=== PATIENT | male | born 1950 ===

== ENCOUNTER 2019-01-19 09:11 | Day surgery (SDC) | payer MEDICARE, OTHER ==
[~2019-01-19] VITALS: Ht 170.2 cm; Wt 75.0 kg
[2019-01-19] VITALS (11 sets, daily range): BP systolic 125–162; BP diastolic 78–93
[~2019-01-19 09:11] MED LIST: Vancomycin 1 GM in D5W 275 ML IVPB ONE; ceFAZolin sod 1 GM in NS 55 ML IVPB ONE
--- NOTE | 2019-01-19 09:57 | Pre-Procedure Note/Attestation ---
Pre-Procedure Note/Attestation Complete Prior to Procedure Planned Procedure: not applicable Procedure Narrative: IPP Indications for Procedure Pre-Operative Diagnosis: impotence Attestation I attest that I discussed the nature of the procedure; its benefits; risks and complications; and alternatives (and the risks and benefits of such alternatives ), prior to the procedure, with the patient (or the patient's legal sales representative printing supplies). I attest that, if there was a reasonable possibility of needing a blood transfusion, the patient (or the patient's legal sales representative printing supplies) was given the [facility] standardized written summary, pursuant to the [place] Blood Safety Act ([place] Health and Safety Code # 1645, as amended). I attest that I re-evaluated the patient just prior to the surgery and that there has been no change in the patient's H&P, except as documented below: Andrade Gifford MD Jan 19, 2019 09:57
[2019-01-19] MEDS ORDERED: ADALAT20 MG ORAL (09:59)
[2019-01-19] MEDS ORDERED: ASPIR 8181 MG ORAL (09:59)
[2019-01-19] MEDS ORDERED: MYRBETRIQ50 MG PO (09:59)
[2019-01-19] MEDS ORDERED: RAMIPRIL5 MG ORAL (09:59)
[2019-01-19] MEDS ORDERED: BENICAR HCT 401 EAC1 ORAL (09:59)
[2019-01-19] MEDS ORDERED: CARVEDILOL6.25 MG ORAL (09:59)
[2019-01-19] MEDS ORDERED: NeoSporin Gu Irrig 1ml Amp IRRIG ONE (14:16)
[2019-01-19] MEDS ORDERED: Bacitracin 50000 Units Vial ONE (14:16)
[2019-01-19] MEDS ORDERED: Bacitracin Oint 15gm Tube TOPIC ONE (14:16)
[2019-01-19] MEDS ORDERED: LR 1000ml 1,000 ML IVLG SCH (14:25)
--- NOTE | 2019-01-19 14:26 | Anethesia Preoperative Eval ---
Anesthesia Pre-op PMH/ROS General Date of Evaluation: Jan 19, 2019 Time of Evaluation: 15:34 Anesthesiologist: Lex ASA Score: ASA 3 Mallampati Score Class I : Soft palate, uvula, fauces, pillars visible Class II: Soft palate, uvula, fauces visible Class III: Soft palate, base of uvula visible Class IV: Only hard plate visible Mallampati Classification: Class II Surgeon: Ирина Diagnosis: Impotence Surgical Procedure: Penile Iplant Anesthesia History: none Family History: no anesthesia problems Allergies: Coded Allergies: No Known Allergies (Unverified , 01/19/19) Medications: see eMAR Patient NPO?: Yes Past Medical History Cardiovascular: Reports: HTN Gastrointestinal/Genitourinary: Reports: other - Prostate CA Musculoskeletal/Integumentary: Reports: OA PSxH Narrative: Prostatectomy Anesthesia Pre-op Phys. Exam Physician Exam Last Vital Signs Date Time Temp Pulse Resp B/P (MAP) Pulse Ox O2 Delivery O2 Flow Rate FiO2 01/19/19 10:00 Room Air 01/19/19 09:52 97.5 62 18 125/80 97 Constitutional: NAD Neurologic: CN 2-12 intact Cardiovascular: RRR Respiratory: CTA Gastrointestinal: S/NT/ND Airway Exam Mallampati Score: Class II MO: full ROM: limited Teeth: missing, intact Anesthesia Pre-op A/P Risk Assessment & Plan Assessment: ASA 3 Plan: GA, SED, GlideScope Go Status Change Before Surgery: No Pre-Antibiotics Dru mg Vancomycin, 80 mg Gentamicin IV Given Within 1 Hr of Incision: Yes Time Given: 15:41 Mal Burnett MD Jan 19, 2019 14:26
[2019-01-19] MEDS ORDERED: Labetalol 5mg/ml 20ml vial IV PRN (14:30)
[2019-01-19] MEDS ORDERED: HYDROcodone/Acetamin 7.5/325 tab ORAL PRN (14:30)
[2019-01-19] MEDS ORDERED: Hydromorphone 0.5mg/0.5ml inj IVP PRN (14:30)
[2019-01-19] MEDS ORDERED: Metoclopramide 10mg/2ml Inj IVP PRN (14:30)
[2019-01-19] MEDS ORDERED: DiphenhydrAMINE 50mg/ml Inj IVP PRN (14:30)
[2019-01-19] MEDS ORDERED: LORazepam Inj 2mg/ml 1ml IV PRN (14:30)
[2019-01-19] MEDS ORDERED: Meperidine 50mg/ml Inj(FOR RIGORS ONLY) IVP PRN (14:30)
[2019-01-19] MEDS ORDERED: Acetaminophen (Non formulary) 100 ML IV ONE (14:30)
[2019-01-19] MEDS ORDERED: Midazolam 2mg/2ml Inj IVP PRN (14:30)
[2019-01-19] MEDS ORDERED: fentaNYL 100 mcg/2 mL IV PRN (14:30)
[2019-01-19] MEDS ORDERED: Ketorolac 30mg Inj IV PRN ×2 (14:30)
[2019-01-19] MEDS ORDERED: oxyCODONE HCL/Acetaminophen 5/325mg ORAL PRN (14:30)
[2019-01-19] MEDS ORDERED: Atropine Sulfate 0.4mg/ml inj IVP PRN (14:30)
[2019-01-19] MEDS ORDERED: HYDROcodone/Acetamin 5/325 tab ORAL PRN ×2 (14:30→22:01)
--- NOTE | 2019-01-19 14:47 | Immediate Post-Op Evaluation ---
Immediate Post-Op Evalulation Immediate Post-Op Evalulation Procedure: Penile Implant Date of Evaluation: Jan 19, 2019 Time of Evaluation: 17:29 IV Fluids: 1100 LR Blood Products: 0 Estimated Blood Loss: 20 Urinary Output: 0 Blood Pressure Systolic: 147 Blood Pressure Diastolic: 93 Pulse Rate: 79 Respiratory Rate: 16 O2 Sat by Pulse Oximetry: 100 Temperature (Fahrenheit): 97.5 Pain Score (1-10): 2 Nausea: No Vomiting: No Complications 0 Patient Status: awake, reacts, patent, extubated, none Hydration Status: adequate Dru mg Vancomycin, 80 mg Gentamicin IV Given Within 1 Hr of Incision: Yes Time Given: 15:41 Mal Burnett MD Jan 19, 2019 14:47
--- NOTE | 2019-01-19 14:48 | 48 Hour Post Anesthesia Eval ---
Post Anesthesia Evaluation Procedure: Penile Implant Date of Evaluation: Jan 19, 2019 Time of Evaluation: 19:34 Blood Pressure Systolic: 142 0: 89 Pulse Rate: 63 Respiratory Rate: 18 Temperature (Fahrenheit): 97.5 O2 Sat by Pulse Oximetry: 99 Airway: patent Nausea: No Vomiting: No Pain Intensity: 2 Hydration Status: adequate Cardiopulmonary Status: Stable Mental Status/LOC: patient returned to baseline Follow-up Care/Observations: 0 Post-Anesthesia Complications: 0 Follow-up care needed: ready to discharge Mal Burnett MD Jan 19, 2019 14:48
[2019-01-19] MEDS ORDERED: Dexamethasone 4mg/ml vial ONE (14:52)
[2019-01-19] MEDS ORDERED: Lidocaine 1% MPF 10mg/ml 5ml ONE (14:52)
[2019-01-19] MEDS ORDERED: Sodium Chloride 10ml vial INJ ONE (14:52)
[2019-01-19] MEDS ORDERED: fentaNYL 100 mcg/2 mL IV ONE (14:57)
[2019-01-19] MEDS ORDERED: Midazolam 2mg/2ml Inj ONE (14:57)
--- NOTE | 2019-01-19 15:19 | Brief Operative Note ---
Immediate Post Operative Note Operative Note Pre-op Diagnosis: impotence Procedure: IPP Post-op Diagnosis: impotence Post-op Diagnosis: same as pre-op Surgeon: Deshawn Gifford Anesthesia: general Specimen: none Complications: none Condition: stable Fluids: 1000 Estimated Blood Loss: minimal Implant(s) used?: Yes Andrade Gifford MD Jan 19, 2019 15:19
[2019-01-19] MEDS ORDERED: Propofol 200mg/20ml IV ONE (15:30)
[2019-01-19] MEDS ORDERED: Sterile Water Irrig 1000ml IRRIG ONE (15:30)
[2019-01-19] MEDS ORDERED: Zemuron 50mg/5ml Inj IV ONE (15:30)
[2019-01-19] MEDS ORDERED: NS Irrig 1000ml ONE (15:30)
[2019-01-19] MEDS ORDERED: LR 1000ml ONE (15:30)
[2019-01-19] MEDS ORDERED: Ketorolac 30mg Inj ONE (16:59)
[2019-01-19] MEDS ORDERED: D5 1/2NS 1,000 ML IV SCH (22:01)
[2019-01-19] MEDS ORDERED: HYDROmorphone 1mg/ml Carpuject SUBQ PRN (22:01)
[2019-01-19] MEDS ORDERED: Tylenol #3 tab (300mg/30mg) ORAL PRN (22:01)
--- NOTE | 2019-01-21 01:15 | Operative Note - Dictated ---
DATE OF OPERATION: 01/19/2019 PREOPERATIVE DIAGNOSIS: Organic impotence. POSTOPERATIVE DIAGNOSIS: Organic impotence. OPERATION: Implantation of multi-component penile prosthesis. OPERATED BY: Andrade Gifford M.D. ANESTHESIA: General. FINDINGS: Obstructed corpora. INDICATIONS FOR SURGERY: The patient had untreatable organic impotence unresponsive to any course of treatments. Treatment options were explained to him at great length including all potential complications. He signed a consent. DESCRIPTION OF PROCEDURE: He was brought to the operating room, placed in supine position, prepped and draped in standard fashion. Under general anesthesia, penoscrotal incision was made and both corpora were mobilized. Urethra was protected by Gold catheter. Corpora was opened and dilated on both sides with 14-Thai Hegar dilators and measured 20 cm in length and Ambicor penile prosthesis was placed and sutured in place. Corpora was then closed with 2-0 Vicryl sutures. A pump was placed into the subdartos position and tested, prosthesis functioning well, copiously irrigated with the Triple Antibiotic. The wound was closed in 3 layers and subcuticular closure for the skin. Sponge count and instrument count was correct. Andrade Gifford M.D. DR: Parish JOB#: [id number] CC:
== END 2019-01-19 19:10 | disposition home or self-care (01) ==
LOC: SUR 09:11
DX: N52.9 Male erectile dysfunction, unspecified (principal); I10 Essential (primary) hypertension; Z85.46 Personal history of malignant neoplasm of prostate; M19.90 Unspecified osteoarthritis, unspecified site; Z90.79 Acquired absence of other genital organ(s)
CPT/HCPCS: 54405; C1813; J0690; J1100; J1885; J2250; J2405; J2704; J3010; J3370; 94003; 94150